=== PATIENT | female | born 1955 | race Caucasian/White ===

== ENCOUNTER → 2016-08-16 | Outpatient (CLI) | payer OTHER ==
[~2016-08-16] MED LIST: ALPRAZOLAM 0.50.5 M1; AVELOX 400 MG400 MG PO; BUPROPION XL150 MG PO; CRESTOR10 MG PO; DUONEB 2.5-0.5 M3 ML INH; EFFEXOR; FLUOXETINE HCL40 MG PO; FLUOXETINE PO; LISINOPRIL; LISINOPRIL20 MG; MUCINEX600 MG PO; NAPROSYN500 MG PO; NICOTINE TRANSD21 M1 TD; NORCO 5-325 TA1 EACH PO; PERCOCET 5-3251 EACH PO; PREDNISONE 10 M10 M1; VALIUM5 MG PO; XANAX 0.5 MG0.5 M1 PO
== END ==
LOC: RAD 09:08
DX: J45.40 Moderate persistent asthma, uncomplicated (principal)

== ENCOUNTER → 2016-12-21 | Outpatient (CLI) | payer OTHER | LOC: RAD 11:32 | DX: Z12.31 Encounter for screening mammogram for malignant neoplasm of breast (principal) ==

== ENCOUNTER → 2017-02-07 | Outpatient (CLI) | payer OTHER | LOC: RAD 09:48 | DX: J40 Bronchitis, not specified as acute or chronic (principal) ==

== ENCOUNTER → 2017-12-22 | Outpatient (CLI) | payer OTHER | LOC: RAD 01:41 | DX: Z12.31 Encounter for screening mammogram for malignant neoplasm of breast (principal) ==

== ENCOUNTER → 2019-02-21 | Outpatient (CLI) | payer OTHER | LOC: RAD 02-13 10:24 | DX: Z12.31 Encounter for screening mammogram for malignant neoplasm of breast (principal) ==

== ENCOUNTER → 2019-04-01 | Outpatient (CLI) | payer OTHER | LOC: ULTRA 10:27 | DX: Z13.6 Encounter for screening for cardiovascular disorders (principal); I65.23 Occlusion and stenosis of bilateral carotid arteries; E78.5 Hyperlipidemia, unspecified; I25.10 Atherosclerotic heart disease of native coronary artery without angina pectoris; F17.200 Nicotine dependence, unspecified, uncomplicated ==

== ENCOUNTER 2019-08-06 11:49 | Emergency (ER) | payer OTHER ==
[~2019-08-06] VITALS: Ht 170.2 cm; Wt 70.3 kg
[2019-08-06] MEDS ORDERED: ULTRAM 50MG TAB50 MG PO (13:32)
[2019-08-06 13:41] VITALS: BP 127/62
== END 2019-08-06 13:41 | disposition home or self-care (01) ==
LOC: ER 11:49
DX: S93.402A Sprain of unspecified ligament of left ankle, initial encounter (principal); M79.672 Pain in left foot; I10 Essential (primary) hypertension; E78.00 Pure hypercholesterolemia, unspecified; F17.210 Nicotine dependence, cigarettes, uncomplicated; Z79.899 Other long term (current) drug therapy; Z88.0 Allergy status to penicillin; X50.1XXA Overexertion from prolonged static or awkward postures, initial encounter; Y93.89 Activity, other specified; Y92.89 Other specified places as the place of occurrence of the external cause; Y99.8 Other external cause status

== ENCOUNTER → 2020-01-20 | Outpatient (CLI) | payer OTHER ==
[~2020-01-20] MED LIST changes: +ULTRAM 50MG TAB50 MG PO
== END ==
LOC: CAT 13:10
PROVIDERS: ATTEND Internal Medicine
DX: J43.2 Centrilobular emphysema (principal); Z12.2 Encounter for screening for malignant neoplasm of respiratory organs; I25.10 Atherosclerotic heart disease of native coronary artery without angina pectoris; I70.0 Atherosclerosis of aorta; J98.4 Other disorders of lung; R91.1 Solitary pulmonary nodule; Z87.891 Personal history of nicotine dependence

== ENCOUNTER → 2020-02-24 | Outpatient (CLI) | payer OTHER | LOC: BC 12:18 | PROVIDERS: ATTEND Family Medicine | DX: Z12.31 Encounter for screening mammogram for malignant neoplasm of breast (principal) ==

== ENCOUNTER → 2020-06-09 | Outpatient (CLI) | payer OTHER | LOC: NUC 09:09 | PROVIDERS: ATTEND Nurse Practitioner | DX: M81.0 Age-related osteoporosis without current pathological fracture (principal); M85.80 Other specified disorders of bone density and structure, unspecified site; F17.200 Nicotine dependence, unspecified, uncomplicated ==

== ENCOUNTER → 2021-01-07 | Outpatient (CLI) | payer OTHER | LOC: MRI 14:03 | PROVIDERS: ATTEND Nurse Practitioner | DX: I67.82 Cerebral ischemia (principal); R40.0 Somnolence; H53.9 Unspecified visual disturbance; R26.89 Other abnormalities of gait and mobility; R51.9 Headache, unspecified ==

== ENCOUNTER → 2021-01-22 | Outpatient (CLI) | payer OTHER | LOC: CAT 13:51 | PROVIDERS: ATTEND Internal Medicine | DX: Z12.2 Encounter for screening for malignant neoplasm of respiratory organs (principal); R91.1 Solitary pulmonary nodule; Z87.891 Personal history of nicotine dependence ==

== ENCOUNTER → 2021-03-09 | Outpatient (CLI) | payer OTHER | LOC: BC 03-01 16:06 | PROVIDERS: ATTEND Family Medicine | DX: Z12.31 Encounter for screening mammogram for malignant neoplasm of breast (principal); N64.89 Other specified disorders of breast ==